=== PATIENT | female | born 1995 | race Caucasian/White ===

== ENCOUNTER 2017-07-22 20:31 | Emergency (ER) | payer SELFPAY ==
--- NOTE | 2017-07-22 21:17 | RADIOLOGY REPORT (SQ) ---
EXAM DESCRIPTION: ANKLE LEFT COMPLETE COMPLETED DATE/TIME: 07/22/2017 9:10 pm REASON FOR STUDY: running fall injury COMPARISON: None. NUMBER OF VIEWS: Three views. TECHNIQUE: AP, lateral, and oblique radiographic images acquired of the left ankle. LIMITATIONS: None. FINDINGS: MINERALIZATION: Normal. BONES: No acute fracture or dislocation. No worrisome bone lesions. JOINTS: No effusions. SOFT TISSUES: No soft tissue swelling. No foreign body. OTHER: No other significant finding. IMPRESSION: NEGATIVE STUDY OF THE LEFT ANKLE. NO RADIOGRAPHIC EVIDENCE OF ACUTE INJURY. TECHNICAL DOCUMENTATION: JOB ID: [id number] [employer]- All Rights Reserved
[2017-07-22] MEDS ORDERED: HYDROCODONE/ACETAMINOPHEN 5-325 MG TABLET PO ONE (23:00)
--- NOTE | 2017-07-22 23:03 | ER Document Report ---
HPI - HPI Patient complains to provider of: left ankle injury Pain Level: 5 Context: Patient is a 22-year-old female who comes emergency department for chief complaint of injury to her left ankle. She states she was running when she accidentally inverted the ankle causing a sharp pain. She states the area has started swelling on the outside of her ankle. She states it is very painful to walk on the ankle. She also states that when she went down she caused a small abrasion to her right knee. She denies any right knee pain at this time. This happened prior to arrival. She denies any daily medications, only other medical history is right knee trauma. She reports her tetanus is up-to-date within 5 years. - CARDIOVASCULAR Cardiovascular: DENIES: Chest pain - REPRODUCTIVE LMP: 06/12/2017 Reproductive: DENIES: : Past Medical History - General Information source: Patient - Social History Smoking Status: Never Smoker Drug Abuse: None Lives with: Family Family History: Reviewed & Not Pertinent Renal/ Medical History: Reports: Hx Ovarian Cysts. Denies: Hx Peritoneal Dialysis Past Surgical History: Reports: Hx Orthopedic Surgery - Knee meniscus surgery - Immunizations Hx Diphtheria, Pertussis, Tetanus Vaccination: Yes Vertical Provider Document - CONSTITUTIONAL General Appearance: WD/WN, No Apparent Distress - INFECTION CONTROL TRAVEL OUTSIDE OF THE [place] IN LAST 30 DAYS: No - HEENT HEENT: Atraumatic, Normocephalic - RESPIRATORY Respiratory: Breath Sounds Normal, No Respiratory Distress O2 Sat by Pulse Oximetry: 99 - CARDIOVASCULAR Cardiovascular: Regular Rate, Regular Rhythm - GI/ABDOMEN Gastrointestinal: Abdomen Soft, Abdomen Non-Tender - MUSCULOSKELETAL/EXTREMETIES Musculoskeletal/Extremeties: Tender - Mild soft tissue swelling over the lateral malleolus, tenderness over the dorsum of the foot, otherwise normal foot , leg, knee, hip exam on the left side. Normal capillary refill and sensation. - NEURO Level of Consciousness: Awake, Alert, Appropriate - DERM Integumentary: Warm, Dry, No Rash Course - Vital Signs Vital signs: Temp Pulse Resp BP Pulse Ox 97.4 F 90 20 112/64 99 07/22/17 20:52 07/22/17 20:52 07/22/17 20:52 07/22/17 20:52 07/22/17 20:52 - Diagnostic Test Radiology reviewed: Image reviewed, Reports reviewed Procedures - Immobilization Left ankle Pre-Proc Neuro Vasc Exam: Normal Immobilizer type: Rubio wrap, Ankle stirrup Performed by: RN Post-Proc Neuro Vasc Exam: Normal Alignment checked and good: Yes Discharge - Discharge Clinical Impression: Left ankle injury Qualifiers: Encounter type: initial encounter Qualified Code(s): S99.912A - Unspecified injury of left ankle, initial encounter Condition: Stable Disposition: HOME, SELF-CARE Additional Instructions: X-ray imaging does not show any fracture. Examination is consistent with a sprain of the ankles. Will recommend wearing the brace/Rubio wrap before that, take off about 3-4 times a day to ice for 10-15 minutes, elevate, use crutches to get around, take the naproxen as prescribed. After about 3 days or so begin to resume normal activity as tolerated. Follow-up with primary care. Return to emergency department for any concerning symptoms including severe some swelling or pain, or any other concerning symptoms. Prescriptions: Naproxen 500 mg PO BID #20 tablet
[2017-07-23 00:28] VITALS: BP 125/85
== END 2017-07-23 00:25 | disposition home or self-care (01) ==
LOC: ER 20:31
DX: S99.912A Unspecified injury of left ankle, initial encounter (principal); S80.211A Abrasion, right knee, initial encounter; X50.0XXA Overexertion from strenuous movement or load, initial encounter; Y93.02 Activity, running
CPT/HCPCS: 99283; 73610; L4350